=== PATIENT | male | born 2000 | race Caucasian/White ===

== ENCOUNTER 2020-07-01 18:33 | Emergency (ER) | payer OTHER ==
[~2020-07-01] VITALS: Ht 167.6 cm; Wt 65.8 kg
[2020-07-01 19:13] VITALS: BP_SYST 149
--- NOTE | 2020-07-01 19:13 | NUR ---
Patient triaged and placed in waiting room. VSS and patient appears in no acute distress at this time. Awaiting available bed, and MD notified of need for MSE.
--- NOTE | 2020-07-01 19:42 | NUR ---
Patient to ER bed 04 to gown for evaluation. Side rails up. Report given to ENZO Arrieta
--- NOTE | 2020-07-01 19:45 | NUR ---
DR. HUMPHREY AT THE BEDSIDE EVALUATING PT.
--- NOTE | 2020-07-01 19:50 | NUR ---
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 HE STATES WHEN PUSHING A WHEELBARROW HE SUDDENLY FELT SHARP PAIN IN HIS KNEE. HE DENIES ANY OTHER MEDICAL CONDITIONS. HE IS AAOX4, V/S STABLE
--- NOTE | 2020-07-01 20:30 | NUR ---
Patient resting quietly. No acute distress noted. Vital signs within normal range.
--- NOTE | 2020-07-01 21:00 | NUR ---
PT PROVIDED WITH DAV BANDAGE WRAP ON LEFT KNEE PER MD ORDER. PT TOLERATED WELL
--- NOTE | 2020-07-01 21:11 | NUR ---
Patient given written and verbal discharge instructions and verbalizes understanding. ER MD discussed with patient the results and treatment provided. Patient in stable condition. ID arm band removed. Patient educated on pain management and to follow up with PMD. Pain Scale 0/10. Opportunity for questions provided and answered. Medication side effect fact sheet provided.
[2020-07-01 21:12] VITALS: BP_SYST 139
== END 2020-07-01 21:12 | disposition home or self-care (01) ==
LOC: SED 18:33
DX: S83.8X2A Sprain of other specified parts of left knee, initial encounter (principal); X58.XXXA Exposure to other specified factors, initial encounter; Y93.89 Activity, other specified; Y92.89 Other specified places as the place of occurrence of the external cause; Y99.8 Other external cause status
CPT/HCPCS: 73564; 99283

== ENCOUNTER 2021-05-25 10:12 | Emergency (ER) | payer OTHER ==
[~2021-05-25] VITALS: Ht 170.2 cm; Wt 68.5 kg
[2021-05-25 10:17] VITALS: BP_SYST 122
[2021-05-25] MEDS ORDERED: KETOROLAC TROMETHAMINE 60 MG/2 ML VIAL IM ONE (10:45)
[2021-05-25 10:49] LABS: BASOPHILS # (AUTO) 0.1 K/uL (0.0-0.2); BASOPHILS % (AUTO) 1.1 % (0.0-2.0); EOSINOPHILS % (AUTO) 0.3 % (0.0-4.0); HEMATOCRIT 47.2 % (36-54); HEMOGLOBIN 16.1 g/dL (14.0-18.0); LYMPHOCYTES # (AUTO) 1.9 K/uL (1.0-5.5); LYMPHOCYTES % (AUTO) 29.3 % (20.5-51.5); MEAN CORPUSCULAR HEMOGLOBIN 30 pg (27-31); MEAN CORPUSCULAR HGB CONC 34 % (32-36); MEAN CORPUSCULAR VOLUME 88 fL (79.0-98.0); MONOCYTES # (AUTO) 0.4 K/uL (0.0-1.0); MONOCYTES % (AUTO) 5.6 % (1.7-9.3); NEUTROPHILS # (AUTO) 4.2 K/uL (1.8-7.7); NEUTROPHILS % (AUTO) 63.7 % (40.0-70.0); PLATELET COUNT (AUTO) 205 K/uL (130-430); RED BLOOD CELL COUNT(AUTO) 5.39 MIL/uL (4.2-6.2); RED CELL DISTRIBUTION WIDTH 12.7 % (9.0-15.0); WHITE BLOOD COUNT (AUTO) 6.7 K/uL (4.5-11.0)
[2021-05-25 11:06] LABS: ANION GAP 8 (5-15); CALCIUM 9.4 mg/dL (8.4-11.0); CHLORIDE 103 mmol/L (98-107); CREATININE 0.86 mg/dL (0.55-1.30); GLUCOSE 71 mg/dL (70-99); POTASSIUM 3.7 mmol/L (3.5-5.1); SODIUM SERUM 142 mmol/L (136-145); UREA NITROGEN, BLOOD 12 mg/dL (8-21)
[2021-05-25 11:08] LABS: GFR AFRICAN AMERICAN 146 mL/min (>90)
[2021-05-25 11:10] LABS: ALANINE AMINOTRANSFERASE 29 U/L (12-78); ALBUMIN 4.5 g/dL (3.4-4.8); ASPARTATE AMINOTRANSFERASE 18 U/L (10-37); C-REACTIVE PROTEIN QUANT < 0.2 mg/dL (0-0.5); TOTAL BILIRUBIN 1.2 mg/dL (0.0-1.0); URIC ACID 5.6 mg/dL (2.4-7.0)
[2021-05-25 11:27] LABS: ERYTHROCYTE SEDIMENTATION RATE 1 MM/HR (0-15)
[2021-05-25 12:44] VITALS: BP_SYST 122
== END 2021-05-25 12:45 | disposition home or self-care (01) ==
LOC: SED 10:12
DX: M77.02 Medial epicondylitis, left elbow (principal)
CPT/HCPCS: 36415; 73080; 80053; 84550; 85025; 85610; 85651; 85730; 86140; 99284; J1885

== ENCOUNTER 2023-04-02 16:03 | Emergency (ER) | payer OTHER ==
[2023-04-02 16:44] VITALS: BP_SYST 127
--- NOTE | 2023-04-02 16:47 | NUR ---
EKG DONE: NSR @66. PT STATES HE FEELS BETTER AFTER EKG. PT STATED HE DOSEN'T WANT TO STAY. PT LEFT WITHOUT BEING SEEN BY
--- NOTE | 2023-04-02 18:30 | NUR ---
CALLED FOR BLOOD DRAW NO ANSWER
--- NOTE | 2023-04-02 19:10 | NUR ---
CALLED FOR BLOOD DRAW NO ANSWER
--- NOTE | 2023-04-02 19:37 | NUR ---
CALLED FOR BLOOD DRAW NO ANSWER
--- NOTE | 2023-04-02 19:37 | NUR ---
PATIENT LEFT WITHOUT BEING SEEN
== END 2023-04-02 19:37 | disposition left against medical advice (07) ==
LOC: SED 16:03
DX: R07.89 Other chest pain (principal); Z53.21 Procedure and treatment not carried out due to patient leaving prior to being seen by health care provider
CPT/HCPCS: 99281

== ENCOUNTER 2023-04-23 09:29 | Emergency (ER) | payer OTHER ==
[~2023-04-23] VITALS: Ht 170.2 cm; Wt 69.9 kg
--- NOTE | 2023-04-23 09:29 | NUR ---
PT BROUGHT BACK TO BED #4 AND TRIAGED, WILL ASSUME CARE.
[2023-04-23 09:30] VITALS: BP_SYST 133; PULSE 70; RESP 17; TEMP 97.2; O2SAT 97
--- NOTE | 2023-04-23 09:32 | NUR ---
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 PT STATES THAT HIS LEFT UPPER CHEST GETS TENSE, THIS HAS BEEN HAPPENING FOR 1 MONTH. PT WAS SEEN HERE ON 04/02 FOR SAME, PT HAS NOT FOLLOWED UP WITH PMD
--- NOTE | 2023-04-23 09:50 | NUR ---
DR VALDEZ AT BEDSIDE FOR EVALUATION
--- NOTE | 2023-04-23 10:53 | NUR ---
Patient given written and verbal discharge instructions and verbalizes understanding. ER MD discussed with patient the results and treatment provided. Patient in stable condition. ID arm band removed. Rx of NONE given. Patient educated on pain management and to follow up with PMD. Pain Scale 0/10. Opportunity for questions provided and answered. Medication side effect fact sheet provided.
== END 2023-04-23 10:53 | disposition home or self-care (01) ==
LOC: SED 09:29
DX: R07.89 Other chest pain (principal); F41.9 Anxiety disorder, unspecified; Z79.899 Other long term (current) drug therapy
CPT/HCPCS: 71045; 93005; 99283